=== PATIENT | female | born 1990 | race American Indian/Alaskan Native ===

== ENCOUNTER 2016-06-23 11:04 | Emergency (ER) | payer SELFPAY ==
[2016-06-23 11:10] VITALS: BP 111/78
[2016-06-23] MEDS ORDERED: DUONEB 0.5 MG-3 MG/3 ML SOLN IH ONE (11:36)
--- NOTE | 2016-06-23 11:41 | Emergency Department Report ---
ED General Adult HPI - General Chief complaint: Dyspnea/Respdistress Stated complaint: SOB Time Seen by Provider: 06/23/16 11:31 Source: patient Mode of arrival: Ambulatory Limitations: No Limitations - History of Present Illness Initial comments: PT c/o asthma exacerbation. PT states she was sob and retracting last night, + wheezing. PT states she is out of her inhaler. PT states she has a hx of asthma , eczema, and allergies and states all of them have been giving her problems. PT c/o clear nasal drainage, no improvement with Zyrtec or Sudafed. Complaint: asthma exacerbation -: Gradual, days(s) Location: face (rash ), neck (rash ), chest Severity scale (0 -10): 10 (last night. pt states she did not seek medical care then because she was watching her children and her family member's kids) Improves with: medication (albuterol and steroids. PT states she needs steroids every spring ) Associated Symptoms: cough, shortness of breath. denies: chest pain, fever/ chills, nausea/vomiting Treatments Prior to Arrival: none ED Review of Systems ROS: Stated complaint: SOB Other details as noted in HPI Comment: All other systems reviewed and negative Constitutional: denies: chills, fever Eyes: other (itching ) ENT: congestion (and clear nasal drainage). denies: ear pain, throat pain Respiratory: cough, shortness of breath (last night ), wheezing, other ( retractions last night ) Cardiovascular: denies: chest pain Gastrointestinal: denies: nausea, vomiting Skin: rash (to face and neck ) ED Past Medical Hx - Past Medical History Previous Medical History?: Yes Hx Asthma: Yes Additional medical history: allergies, eczema - Surgical History Past Surgical History?: No - Social History Smoking Status: Never Smoker Substance Use Type: None ED Physical Exam - General Limitations: No Limitations General appearance: alert, in no apparent distress - Head Head exam: Present: atraumatic, normocephalic - Eye Eye exam: Present: normal appearance, PERRL, EOMI, other (dry skin around eyes ) . Absent: conjunctival injection - ENT ENT exam: Present: normal orophraynx, mucous membranes moist, TM's normal bilaterally, normal external ear exam, other (clear nasal drainage from nose. ) - Neck Neck exam: Present: full ROM, other (eczema like rash noted to ant neck and L lateral neck ). Absent: tenderness, meningismus, lymphadenopathy - Respiratory Respiratory exam: Present: decreased breath sounds (bar[place] ). Absent: respiratory distress, wheezes, rhonchi, stridor, chest wall tenderness, accessory muscle use - Cardiovascular Cardiovascular Exam: Present: regular rate, normal rhythm, normal heart sounds - Extremities Exam Extremities exam: Present: normal inspection, full ROM - Back Exam Back exam: Present: normal inspection, full ROM. Absent: tenderness, CVA tenderness (R), CVA tenderness (L), muscle spasm, paraspinal tenderness, vertebral tenderness - Neurological Exam Neurological exam: Present: alert, oriented X3 - Psychiatric Psychiatric exam: Present: normal affect, normal mood - Skin Skin exam: Present: warm, dry, intact, normal color, rash ED Course Vital Signs 06/23/16 06/23/16 06/23/16 11:08 12:02 12:10 Temperature 97.9 F Pulse Rate 67 Pulse Rate [ 84 89 Anterior Bilateral Throughout] Respiratory 16 Rate Respiratory 16 16 Rate [Anterior Bilateral Throughout] Blood Pressure 111/78 O2 Sat by Pulse 100 Oximetry - Reevaluation(s) Reevaluation #1: 06/23/16 11:43 PT aware of plan of care. PT has no questions at this time. Reevaluation #2: 06/23/16 12:43 PT states she is feeling better sp neb. PT's lung sounds improved, cta barrington. - Pulse Oximetry Interpretation Digit-Finger Initial Pulse Oximetry Readin Actions Taken: none ED Medical Decision Making - Differential Diagnosis asthma, allergies Critical care attestation.: If time is entered above; I have spent that time in minutes in the direct care of this critically ill patient, excluding procedure time. ED Disposition Clinical Impression: Asthma exacerbation Disposition: DISCHARGED TO HOME OR SELFCARE Is pt being admited?: No Does the pt Need Aspirin: No Condition: Stable Instructions: Asthma (ED) Additional Instructions: Follow up with PCP in 3-5 days OTC hydrocortisone cream for eczema rash that is not on your face Referrals: PRIMARY MD LORNE [Primary Care Provider] - 3-5 Days LINDSAY GUTIERREZ MD [Staff Physician] - 3-5 Days Time of Disposition: 12:46
== END 2016-06-23 12:55 | disposition home or self-care (01) ==
LOC: ED 11:04
DX: J45.901 Unspecified asthma with (acute) exacerbation (principal)
CPT/HCPCS: 94640